=== PATIENT | male | born 1995 | race Asian ===

== ENCOUNTER 2021-06-12 08:10 | Outpatient (CLI) | payer OTHER ==
[2021-06-12 09:13] VITALS: BP 122/83
--- NOTE | 2021-06-12 09:13 | SLEEP CARE CONSULTATION ---
Information from patient questionnaire entered by Paola Sylvester. I have reviewed and concur with the information entered by Paola Sylvester. This document represents the service I personally performed and the decisions made by me, Quyen Diaz ARNP. History of Present Illness Service Date and Time: 06/12/2021 0810 Reason for Visit: New patient Chief Complaint: reports: Insomnia, Unrefreshed sleep, Snoring, Excessive daytime sleepiness, Observed pauses in breathing, Frequent awakenings at night Date of Onset: at least 3 years Usual bedtime: 2-3 am Time it takes to fall asleep: long time Snores at night: Yes Observed to quit breathing while asleep: Yes Sleeps alone due to snoring: No Number of times waking at night: 4-5 Reasons for waking at night: reports: Snoring, Gasping for air, Bathroom, Other (unknown reasons). denies: Choking Toss, Turn, or Twitch while sleeping: Yes Recalls having dreams: No Usually gets out of bed at: 9 am Feels refreshed in the morning: No Morning headache: Yes (resolves after drinking water; every morning) Sleepy or fatigued during the day: Yes Ever fallen asleep while driving: No Takes day naps: No Dreams during day naps: Yes Prior sleep studies: No Additional HPI information: I had the pleasure of seeing SANTIAGO ISRAEL today regarding the possibility of him having a sleep disorder. His current complaints are excessive daytime slee piness, frequent night awakenings, insomnia, observed pauses in breathing, snoring and unrefreshed sleep. He comes in today because others sleeping in same room have told him he gasps for air and snores really loudly. He states the snoring has been there for a long time, even when he was "skinnier". He states he is always tired, wakes up with headaches and dry mouth from sleeping with mouth open. He has taken Ambien in the past to help and had some good results. He has also taken Melatonin to go sleep. He averages 1 hour to go to sleep. He states that he can wake up easily, 3-4 times a night after falling asleep. He has woken up gasping for air and snoring. He has a history of hypertension and pre-diabetes. 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 Patient is Single and lives in [place]. Have you smoked in the past 12 months: Yes (occasional/social) Cigarettes per day (20/pack): 1 (occasional) Years of smokin Smoking Pack Years: 0 Alcohol use: Yes Alcohol amount and frequency: occasional 6 times a year/social Caffeine use: Yes Caffeine amount and frequency: barely Family History Family history of sleep disordered breathing: Yes (none diagnosed) Family Hx Sleep Apnea: Mother: Snoring, Sleep apnea - Untreated, Father: Snoring, Sibling: Snoring, Sleep apnea - Untreated, Grandparent: Snoring Allergies and Home Medications Drug allergies reviewed: Yes (NKDA) Home medication list reviewed: Yes Allergy and home medication list: Lisinopril Ambien, prn Melatonin, prn B-complex vitamin Fish oil Review of Systems Weight gain over past 5 years: 35 Cardiovascular: reports: high blood pressure, palpitations Neurological: reports: headaches Psychiatric: reports: anxiety. denies: depression Ear/Nose/Throat: reports: dry mouth/throat (every morning), wisdom teeth removed (one removed, still has one more). denies: sinus problems, injury to nose, tonsillectomy Immunologic: denies: allergies to food or environment Physical Exam Blood Pressure: 122/83 Cuff size: wrist Heart Rate: 71 O2 Saturation: 99 Height: 5 ft 6 in Weight: 186 lb Body Mass Index: 29.9 BMI Classification: Overweight Neck circumference: 16.25 (inches) Mouth and throat: narrow oropharynx Soft palate: long Hard palate: normal Uvula: normal Uvula visualization: 25% Mallampati Class III Tongue: enlarged in size with teeth colvin on lateral edges Neck: normal w/o lymphadenopathy or thyromegaly Heart: regular rate and rhythm Lungs: clear bilaterally Impression and Plan 1. Suspected Obstructive Sleep Apnea-Hypopnea Syndrome, as suggested by a history of loud and irregular snoring, observed cessation of breath while asleep, gasping or choking in sleep, morning headache, frequent awakening during the night, unrefreshed sleep, cognitive impairment, and excessive daytime sleepiness. Narrow oropharynx and obesity are common predisposing factors for obstructive sleep apnea-hypopnea syndrome. I recommend proceeding to polysomnography to confirm the diagnosis and to assess severity. If the patient has significant sleep disordered breathing, a manual CPAP titration study will also be performed to find the optimal treatment pressure. I informed the patient of what the sleep studies involve and after some discussion, obtained agreement to proceed. The pathophysiology of obstructive sleep apnea-hypopnea syndrome was discussed with the patient and health risks of cardiovascular and cerebrovascula r disease if not treated. AAS brochure for obstructive sleep apnea-hypopnea syndrome given and reviewed. Risks of drowsy driving discussed in detail and patient advised to avoid long distance driving and to pull through hooker at the first sign of drowsiness. Patient agreed to plan. * Schedule polysomnography +- manual CPAP titration study and return in 1-2 weeks after the study to discuss result and initiate therapy. * Avoid long distance driving or driving when feeling sleepy. * Avoid alcohol, sedative and muscle relaxant around bedtime. * Attempt to lose weight. * Review instructions provided by trained office staff on how to prepare for the sleep study. * Return for follow-up after sleep study completed. Counseling Topics: Weight loss health impact Visit Type: In Office Time Spent with Patient (minutes): 30 Provider Statement: I spent 100% of the Face to Face Visit with the patient with greater than 50% spent counseling the patient and coordination of care.
== END 2021-06-12 08:11 | disposition home or self-care (01) ==
LOC: SC 08:10
PROVIDERS: ATTEND Nurse Practitioner Family
DX: G47.10 Hypersomnia, unspecified (principal); R51.9 Headache, unspecified; G47.8 Other sleep disorders; R06.83 Snoring; R41.89 Other symptoms and signs involving cognitive functions and awareness; R06.81 Apnea, not elsewhere classified; F17.210 Nicotine dependence, cigarettes, uncomplicated
CPT/HCPCS: 99203; 99212

== ENCOUNTER 2021-06-20 13:51 | Outpatient (CLI) | payer OTHER | END 2021-06-20 13:52 | disposition home or self-care (01) | LOC: SC 13:51 | PROVIDERS: ATTEND Nurse Practitioner Family | DX: G47.33 Obstructive sleep apnea (adult) (pediatric) (principal); R09.02 Hypoxemia | CPT/HCPCS: 95806 ==

== ENCOUNTER 2021-07-03 11:26 | Outpatient (CLI) | payer OTHER ==
[2021-07-03 12:06] VITALS: BP 143/86
--- NOTE | 2021-07-03 12:06 | SLEEP CARE CONSULTATION ---
Information from patient questionnaire entered by Bridget Pablo. I have reviewed and concur with the information entered by Bridget Pablo. This document represents the service I personally performed and the decisions made by me, Quyen Diaz ARNP. History of Present Illness Service Date and Time: 07/03/2021 1126 Initial [place] Sleepiness Scale score: 11 (in 2020) Current [place] Sleepiness Scale score: 21 Additional HPI information: SANTIAGO ISRAEL returns for follow up and results of the recently performed polysomnography. I explained the pathophysiology behind obstructive sleep apnea. We then spent quite a bit of time discussing different treatment options. For mild obstructive sleep apnea, surgery and oral appliance are alternatives to nasal CPAP therapy but in moderate or severe cases, nasal CPAP is the most effective and reliable treatment. Because apnea is primarily in supine position, then positional management therapy could be effective. Methods discussed such as positioning with pillows, using a T-shirt with tennis balls in the back, and shown commercial products that have a pillow format on back to prevent supine sleep. I reviewed the impact of weight changes on sleep apnea and strongly recommended losing weight. After some discussion, the patient opted to go with the nasal CPAP therapy. Nasal autoCPAP set at 4-15 cmH20 will be ordered with rationale explained. A manual titration study will be ordered if unable to find optimal pressure with office adjustments. I explained how CPAP machine works with sample devices [employer] Dreamstation and [employer] [id number] and what to expect when using the machine. Using CPAP every night in order to get used to it was emphasized. Patient advised to put CPAP mask on before getting into bed so as not to fall asleep without CPAP. To assist acclimation to CPAP use, it could also be used for a short time during day while reading or watching TV. The patient was instructed to call the CPAP supplier to discuss any mechanical problem that may occur. If the mask given is uncomfortable or is difficult to keep on through the night even with adjustment, contact the CPAP supplier as many will replace with another mask style if notified before 30 days. If snoring or perceives is not getting enough air or too much air from the machine, notify this office. [facility] patient education PAP tips reviewed and given to patient. Patient counseled not drink alcohol less than 4 hours before bedtime as it can increase snoring and apnea. Patient was cautioned about risks of drowsy driving until sleepiness symptoms resolve. Sleep Study - Results Type of Sleep Study: Home sleep study Prior sleep studies: Yes Year and Where: 06/2021 [facility] Polysomnography/Home Sleep Study results: Physician Impression: The quality of the study is good. The length of the study is adequate (> 240 minutes). Please also see the tabulated and graphic data. 1. Obstructive Sleep Apnea-Hypopnea (ICD-10 G47.33), moderate, with an AHI of 15.2/hr and kassandra SaO2 of 79%. During the study, the patient had 42 apneas (42 obstructive, 0 central, 0 mixed) and 16 hypopneas. The longest episode lasted 65.5 seconds. The respiratory events occurred independently of sleep stage and body position (supine AHI was 14.3 and non-supine, 17.68). 2. Hypoxemia (ICD-10 R09.02), moderate, with the lowest oxygen saturation of 79 % and 7.4 minutes with SaO2 under 90%. Baseline oxygen saturation was normal (Average oxygen saturation was 95%). Allergies and Home Medications Home medication list reviewed: Yes (increased Lisinopril to 10 mg; Ambien 5 mg prn) Review of Systems Review of systems same as previous: Yes (no changes) Physical Exam Blood Pressure: 143/86 Cuff size: wrist Heart Rate: 89 O2 Saturation: 98 Height: 5 ft 6 in Weight: 187 lb Body Mass Index: 30.2 BMI Classification: Obese Impression and Plan 1. Obstructive Sleep Apnea-Hypopnea Syndrome, moderate, with lowest oxygen saturation of 79%. Obviously this is the cause of the patients symptoms of unrefreshed sleep, and excessive daytime sleepiness. Positive pressure therapy could benefit hypertension and pre-diabetes. As mentioned above, the patient will be started on nasal autoCPAP therapy with pressure set at 4-15 cmH2O. A manual titration study will be completed if unable to find optimal treatment pressure with office adjustments. Compliance guidelines also reviewed. A copy of compliance guidelines will be given for reference at check out. 2. Hypoxemia, moderate, with the lowest oxygen saturation of 79 % and 7.4 minutes with SaO2 under 90%. His baseline oxygen saturation was normal with an average oxygen saturation of 95%. * Nasal auto CPAP therapy, pressure at 4-15 cm H2O. * Attempt to lose weight. * Avoid alcohol consumption near bedtime. * Avoid supine sleep until using CPAP. * The patient is again cautioned about driving until sleepiness completely resolves. * Return one month after CPAP obtained. I will assess response to therapy and compliance at that time. Counseling Topics: Weight loss health impact Visit Type: In Office Time Spent with Patient (minutes): 27 Provider Statement: I spent 100% of the Face to Face Visit with the patient with greater than 50% spent counseling the patient and coordination of care.
== END 2021-07-03 11:27 | disposition home or self-care (01) ==
LOC: SC 11:26
PROVIDERS: ATTEND Nurse Practitioner Family
DX: G47.33 Obstructive sleep apnea (adult) (pediatric) (principal); R09.02 Hypoxemia; E66.9 Obesity, unspecified; Z68.30 Body mass index [BMI] 30.0-30.9, adult
CPT/HCPCS: 99212; 99213

== ENCOUNTER 2021-09-29 08:42 | Emergency (ER) | payer OTHER ==
[2021-09-29] MEDS ORDERED: SODIUM CHLORIDE 0.9% 1,000 ML IV STA (08:55)
[2021-09-29] MEDS ORDERED: KETOROLAC 30 MG/ML VIAL IVP STA (08:55)
[2021-09-29] MEDS ORDERED: ONDANSETRON 4 MG/2 ML VIAL IVP STA (08:55)
--- NOTE | 2021-09-29 08:57 | ED Physician Documentation ---
PD HPI ABD PAIN - Stated complaint Stated Complaint: DIZZY/VOMITING - Chief complaint Chief Complaint: Abd Pain - History obtained from History obtained from: Patient - Additional information Additional information: 26-year-old gentleman with hypertension and sleep apnea presents with an illness that started 2 days ago with vomiting, diarrhea, and dizziness as well as stomach cramps. His sister was recently ill with similar illness. He is fully vaccinated against Covid. He feels dizzy, more lightheaded than spinning but endorses both sensations. Denies headache. No blood in the diarrhea. No fevers. He does have a dry cough. Recently traveled to [place]. He has had subjective fevers but none measured. Review of Systems Constitutional: reports: Fatigue. denies: Myalgias Nose: denies: Rhinorrhea / runny nose, Congestion Cardiac: denies: Chest pain / pressure, Palpitations Respiratory: reports: Cough. denies: Dyspnea GI: reports: Abdominal Pain, Nausea, Vomiting, Diarrhea PD PAST MEDICAL HISTORY - Present Medications Home Medications: Ambulatory Orders Medication Instructions Recorded Confirmed Dicyclomine [Bentyl] 1 - 2 tab PO QID PRN #20 cap 09/29/21 Ondansetron Odt [Zofran] 4 mg TL Q6H PRN #10 tablet 09/29/21 - Allergies Allergies/Adverse Reactions: Allergies Allergy/AdvReac Type Severity Reaction Status Date / Time No Known Drug Allergies Allergy Verified 09/29/21 08:50 PD ED PE NORMAL - Vitals Vital signs reviewed: Yes - General General: Alert and oriented X 3, No acute distress - HEENT HEENT: Pharynx benign - Neck Neck: Supple, no meningeal sign, No bony TTP - Cardiac Cardiac: RRR, No murmur - Respiratory Respiratory: No respiratory distress, Clear bilaterally - Abdomen Abdomen: Normal bowel sounds, Soft, Non tender - Back Back: No CVA TTP, No spinal TTP - Derm Derm: Normal color, Warm and dry - Extremities Extremities: No edema, No calf tenderness / cord - Neuro Neuro: Alert and oriented X 3, Normal speech Results - Vitals Vitals: Vital Signs - 24 hr 09/29/21 09/29/21 08:48 08:50 Temperature 36.9 C 36.9 C Heart Rate 66 66 Respiratory 18 18 Rate Blood Pressure 161/95 H 161/95 H O2 Saturation 98 98 Oxygen O2 Source Room air - Labs Labs: Laboratory Tests 09/29/21 09/29/21 09:30 09:30 WBC 4.9 RBC 4.99 Hgb 15.5 Hct 43.7 MCV 87.6 MCH 31.1 H MCHC 35.5 RDW 12.0 Plt Count 197 MPV 9.9 Neut # (Auto) 2.6 Lymph # (Auto) 1.8 Logan # (Auto) 0.4 Eos # (Auto) 0.1 Baso # (Auto) 0.1 Absolute Nucleated RBC 0.00 Nucleated RBC % 0.0 Sodium 139 Potassium 4.1 Chloride 104 Carbon Dioxide 24 Anion Gap 11.0 BUN 13 Creatinine 0.9 Estimated GFR (MDRD) 102 Glucose 101 H Calcium 9.3 Total Bilirubin 1.4 H AST 25 ALT 39 Alkaline Phosphatase 48 Total Protein 7.8 Albumin 4.6 Globulin 3.2 Albumin/Globulin Ratio 1.4 Lipase 30 PD MEDICAL DECISION MAKING - ED course ED course: 26-year-old gentleman with what sounds like viral gastroenteritis. He has a benign examination. He requested Covid testing and this is done. Departure - Departure Disposition: 01 Home, Self Care Clinical Impression: Gastroenteritis Condition: Good Record reviewed to determine appropriate education?: Yes Instructions: ED Gastroenteritis Viral Prescriptions: Dicyclomine [Bentyl] 1 - 2 tab PO QID PRN #20 cap PRN Reason: Abdominal Pain Ondansetron Odt [Zofran] 4 mg TL Q6H PRN #10 tablet PRN Reason: Nausea / Vomiting Comments: Return if not better in 24 hours, anytime for new or worsening symptoms. You have a Covid test pending. You need to self quarantine until the result is done and negative. Do not leave your house. Do not get near anybody. The results should be done in 48 to 72 hours. We will call with a positive result, the fastest way to get a negative result for confirmation though is to go to the hospital website at [email or web address], click on the my [facility] tab and sign up for the patient portal. If any friends or family get sick and would like to have a Covid test done, but do not have signs or symptoms that would necessitate being hospitalized, there are multiple local options for Covid testing. [facility] keeps an updated list of testing and vaccination options at: [email or web address]. Forms: Activity restrictions
[2021-09-29 09:36] LABS: BASOPHILS # (AUTO) 0.1 10^3/uL (0.0-0.1); EOSINOPHILS # (AUTO) 0.1 10^3/uL (0.0-0.7); HCT - HEMATOCRIT 43.7 % (42.0-52.0); HGB - HEMOGLOBIN 15.5 g/dL (14.0-18.0); LYMPHOCYTES # (AUTO) 1.8 10^3/uL (1.5-3.5); LYMPHOCYTES % (AUTO) 36.3 %; MEAN CORPUSCULAR HEMOGLOBIN 31.1 pg (27.0-31.0); MEAN CORPUSCULAR HGB CONC 35.5 g/dL (32.0-36.0); MEAN CORPUSCULAR VOLUME 87.6 fL (80.0-94.0); MEAN PLATELET VOLUME 9.9 fL (7.4-11.4); MONOCYTES # (AUTO) 0.4 10^3/uL (0.0-1.0); MONOCYTES % (AUTO) 7.3 %; NEUTROPHILS # (AUTO) 2.6 10^3/uL (1.5-6.6); NEUTROPHILS % (AUTO) 53.2 %; PLT - PLATELET COUNT 197 10^3/uL (130-450); RED BLOOD COUNT 4.99 10^6/uL (4.70-6.10); WHITE BLOOD COUNT 4.9 x10^3/uL (4.8-10.8)
[2021-09-29 09:50] LABS: ALBUMIN 4.6 g/dL (3.2-5.5); ALBUMIN/GLOBULIN RATIO 1.4 (1.0-2.2); BILIRUBIN,TOTAL 1.4 mg/dL (0.2-1.0); CALCIUM 9.3 mg/dL (8.5-10.3); CREATININE 0.9 mg/dL (0.6-1.2); POTASSIUM 4.1 mmol/L (3.5-5.0); TOTAL PROTEIN 7.8 g/dL (6.7-8.2)
[2021-09-29 10:28] VITALS: BP 130/90
== END 2021-09-29 10:27 | disposition home or self-care (01) ==
LOC: ED 08:42
DX: K52.9 Noninfective gastroenteritis and colitis, unspecified (principal); R42 Dizziness and giddiness; Z20.822 Contact with and (suspected) exposure to COVID-19; I10 Essential (primary) hypertension; G47.30 Sleep apnea, unspecified
CPT/HCPCS: 36415; 80053; 83690; 85025; 96374; 96375; 99284

== ENCOUNTER 2022-04-11 16:29 | Outpatient (CLI) | payer OTHER ==
--- NOTE | 2022-04-11 16:01 | SLEEP CARE CONSULTATION ---
Information from patient questionnaire entered by Frankie Navarro MA. I have reviewed and concur with the information entered by Frankie Navarro MA. This document represents the service I personally performed and the decisions made by , Quyen Diaz ARNP. History of Present Illness Service Date and Time: 04/11/2022 1540 Previous diagnosis: Moderate, Obstructive Sleep Apnea-Hypopnea Syndrome AHI: 15.2 (in 2020) Reason for follow up: first compliance (TIFFANIE FIGUEROA 09/12/21, ) Equipment type: CPAP Equipment obtained from: [employer] (got initial supplies) Mask style: Nasal pillows Backup mask available: No (will keep old mask when replaced) Last cushion change: 1 month Prior sleep studies: Yes Year and Where: 06/2021 [facility] Type of Sleep Study: Home sleep study HPI additional information: SANTIAGO ISRAEL was diagnosed to have moderate, AHI 15.2, obstructive sleep apnea- hypopnea syndrome and returns via video telehealth visit today for CPAP therapy first compliance follow-up. Sleep Study - Results Type of Sleep Study: Home sleep study Prior sleep studies: Yes Year and Where: 06/2021 [facility] CPAP Compliance Data - Data Reviewed with Patient Average duration of nightly device use: 4 HOURS 14 MINUTES Compliance rate %: 53 (03/06/22-04/04/22; 30 days; days used) Current pressure setting (cmH2O): 4-15 (median 9.5, avg 12.3, max 13.5) Average residual AHI: 2.5 Central apnea: .3 Obstructive apnea: 1.7 Hypopnea: .4 Average large leak: 11.0 Subjective Missed days of use due to: reports: travel (for work) Patient concerns: reports: other. denies: aerophagia, mask discomfort, air blowing in eyes, mask leak noise, condensation in mask/hose, nasal congestion, dry mouth, nose, throat, epistaxis Observed to snore while using device: No Current pressure setting perceived as: comfortable On therapy, patient: reports: sleeping better, awakening more refreshed, being more awake and alert during the day, more rested overall. denies: drowsiness while driving Initial [place] Sleepiness Scale score: 11 (in 2021) Current [place] Sleepiness Scale score: 9 Allergies and Home Medications Home medication list reviewed: Yes (fluoxetine) Allergy and home medication list: Allergies No Known Drug Allergies Allergy (Verified 09/29/21 08:50) Review of Systems Review of systems same as previous: No (eating disorder) Physical Exam Height: 5 ft 7 in Weight: 190 lb (per pt report) Body Mass Index: 29.7 BMI Classification: Overweight Impression and Plan 1. Obstructive Sleep Apnea-Hypopnea Syndrome, moderate, with fair treatment compliance and good apnea control. On CPAP therapy, the patient has better sleep quality and is more rested overall. The patients pressure will be changed to autoCPAP 11-14 cmH20 to reflect the pressures being used. Patient advised to contact me if pressure change is uncomfortable so that it can be adjusted. Goals for apnea control discussed. Compliance guidelines reviewed for insurance coverage. Patient was counseled on the difference between meeting compliance and optimal use of CPAP. Optimal use of CPAP is use of CPAP with all sleep to obtain maximum benefit of treatment. Patient is encouraged to use CPAP with all sleep. Patient denies problems with oral dryness, nasal congestion, epistaxis, skin irritation or aerophagia. Patient's apnea severity and rationale for treatment to reduce apnea, improve sleep quality and reduce cardiovascular and cerebrovascular events was reviewed. I also reviewed the benefit of consistent device use of CPAP for hypertension and pre-diabetes. * Change auto CPAP pressure to 11-14 cmH2O * Notify me if snoring with mask or feeling that the pressure is too much or too little * Attempt to lose weight * Call this office if any problems using CPAP * Return for follow up in 1-2 months, or sooner if concerns arise Counseling Topics: Spare mask, Weight loss health impact Visit Type: Telehealth Video Video Type: Doximity Patient Location: Home Location of Provider: Office Patient agrees and consents to this telehealth visit type: Yes Patient agrees to have their insurance billed: Yes Time Spent with Patient (minutes): 21 Provider Statement: I spent 100% of the Telehealth Video Call with the patient with greater than 50% spent counseling the patient and coordination of care.
== END 2022-04-11 16:30 | disposition home or self-care (01) ==
LOC: SC 16:29
PROVIDERS: ATTEND Nurse Practitioner Family
DX: G47.33 Obstructive sleep apnea (adult) (pediatric) (principal); E66.3 Overweight; Z68.29 Body mass index [BMI] 29.0-29.9, adult

== ENCOUNTER 2022-06-13 16:23 | Outpatient (CLI) | payer OTHER ==
--- NOTE | 2022-06-13 16:03 | SLEEP CARE CONSULTATION ---
Information from patient questionnaire entered by Tay Arango. I have reviewed and concur with the information entered by Tay Arango. This document represents the service I personally performed and the decisions made by , Quyen Diaz ARNP. History of Present Illness Service Date and Time: 06/13/2022 1540 Previous diagnosis: Moderate, Obstructive Sleep Apnea-Hypopnea Syndrome AHI: 15.2 (in 2020) Reason for follow up: other (2 MONTH F/U ) Equipment type: CPAP Equipment obtained from: [employer] (waiting on supplies) Mask style: Nasal pillows Backup mask available: No (will keep old mask when replaced) Prior sleep studies: Yes Year and Where: 06/2021 [facility] Type of Sleep Study: Home sleep study HPI additional information: [place] was diagnosed to have moderate, AHI 15.2, obstructive sleep apnea- hypopnea syndrome and returned today for CPAP therapy two month follow-up. Sleep Study - Results Type of Sleep Study: Home sleep study Prior sleep studies: Yes Year and Where: 06/2021 [facility] CPAP Compliance Data - Data Reviewed with Patient Average duration of nightly device use: 3 HOURS, 35 MINUTES Compliance rate %: 30 (04/13/22 TO 06/11/22; 56/60 days used) Current pressure setting (cmH2O): 11-14 Average residual AHI: 3.9 Average large leak: 10.9 L/min Subjective Patient concerns: reports: dry mouth, nose, throat. denies: aerophagia, mask discomfort, air blowing in eyes, mask leak noise, condensation in mask/hose, nasal congestion, epistaxis, other Observed to snore while using device: No Current pressure setting perceived as: comfortable On therapy, patient: reports: sleeping better, awakening more refreshed, being more awake and alert during the day, more rested overall. denies: drowsiness while driving Initial [place] Sleepiness Scale score: 11 (in 2020) Current [place] Sleepiness Scale score: 14 (06/13/22) Allergies and Home Medications Known drug allergies: No Drug allergies reviewed: Yes Home medication list reviewed: Yes (no changes) Review of Systems Review of systems same as previous: Yes (no changes) Physical Exam Vital signs obtained and entered by: MELCHOR, TOOLS ADMINISTRATOR Height: 5 ft 7 in Weight: 190 lb (pt reported) Body Mass Index: 29.7 BMI Classification: Overweight Impression and Plan 1. Obstructive Sleep Apnea-Hypopnea Syndrome, moderate, with poor treatment compliance and good apnea control. On CPAP therapy, the patient has better sleep quality and is more rested overall. [] Patient's apnea severity and rationale for treatment to reduce apnea, improve sleep quality and reduce cardiovascular and cerebrovascular events was reviewed. I also reviewed the benefit of consistent device use of CPAP for hypertension and pre-diabetes. * Continue auto CPAP pressure at 11-14 cmH2O * Notify me if snoring with mask or feeling that the pressure is too much or too little * Attempt to lose weight * Call this office if any problems using CPAP * Return for follow up in 3 months, or sooner if concerns arise Counseling Topics: Spare mask, Weight loss health impact Visit Type: Telehealth Video (PHONE# [phone].) Video Type: Doximity Patient Location: Office (ED [facility]) Location of Provider: Office Patient agrees and consents to this telehealth visit type: Yes Patient agrees to have their insurance billed: Yes Time Spent with Patient (minutes): 20 Provider Statement: I spent 100% of the Telehealth Video Call with the patient with greater than 50% spent counseling the patient and coordination of care.
== END 2022-06-13 16:24 | disposition home or self-care (01) ==
LOC: SC 16:23
PROVIDERS: ATTEND Nurse Practitioner Family
DX: G47.33 Obstructive sleep apnea (adult) (pediatric) (principal); E66.3 Overweight; Z68.29 Body mass index [BMI] 29.0-29.9, adult

== ENCOUNTER 2022-10-14 12:46 | Outpatient (CLI) | payer OTHER ==
[2022-10-14 13:28] VITALS: BP 132/84
--- NOTE | 2022-10-14 13:28 | SLEEP CARE CONSULTATION ---
Information from patient questionnaire entered by Lei Jeffers. I have reviewed and concur with the information entered by Lei Jeffers. This document represents the service I personally performed and the decisions made by me, Quyen Diaz ARNP. History of Present Illness Service Date and Time: 10/14/2022 1246 Previous diagnosis: Moderate, Obstructive Sleep Apnea-Hypopnea Syndrome AHI: 15.2 (in 2020) Reason for follow up: other (FOUR MONTH F/U SYMPTOMS WORSENING ) Equipment type: CPAP (RESMED) Equipment obtained from: [employer] (getting supplies) Mask style: Nasal pillows Backup mask available: Yes (old mask) Last cushion change: last week Prior sleep studies: Yes Year and Where: 06/2021 [facility] Type of Sleep Study: Home sleep study HPI additional information: [place] was diagnosed to have moderate, AHI 15.2, obstructive sleep apnea- hypopnea syndrome and returned today for CPAP therapy four month follow-up. Sleep Study - Results Type of Sleep Study: Home sleep study Prior sleep studies: Yes Year and Where: 06/2021 [facility] CPAP Compliance Data - Data Reviewed with Patient Average duration of nightly device use: 4 hours 24 minutes Compliance rate %: 56 (68/90 days used) Current pressure setting (cmH2O): 11-14 (avg 13.7, max 13.8) Average residual AHI: 3.7 Central apnea: 0.4 Obstructive apnea: 2.5 Subjective Missed days of use due to: reports: travel (deployment), other (insomnia affecting ability to go and stay asleep) Patient concerns: denies: aerophagia, mask discomfort, air blowing in eyes, mask leak noise, condensation in mask/hose, nasal congestion, dry mouth, nose, throat, epistaxis Observed to snore while using device: No Current pressure setting perceived as: comfortable On therapy, patient: reports: other (not feeling rested after sleeping and having insomnia) Initial [place] Sleepiness Scale score: 11 (in 2020) Current [place] Sleepiness Scale score: 22 (10/14/22) Allergies and Home Medications Drug allergies reviewed: Yes (NKDA) Home medication list reviewed: Yes (Lisinopril, HCTZ) Review of Systems Review of systems same as previous: Yes (no changes) Physical Exam Vital signs obtained and entered by: LEI Monique MA Blood Pressure: 132/84 (LEFT ARM) Cuff size: regular Heart Rate: 87 O2 Saturation: 94 Height: 5 ft 7 in Weight: 201 lb Body Mass Index: 31.4 BMI Classification: Obese Impression and Plan 1. Obstructive Sleep Apnea-Hypopnea Syndrome, moderate, with fair treatment compliance and good apnea control. Patient is not regularly getting 7-9 hours of sleep a night. He feels the CPAP therapy is not working. He will often not fall asleep for hours with his mask on. He is still very tired during the day and concerned about insomnia. He does put mask on frequently at night but will only be able to sleep for more than 4 hours. He states he will take naps without the CPAP on. Patient denies problems with oral dryness, nasal congestion, epistaxis, skin irritation or aerophagia. He Patient's apnea severity and rationale for treatment to reduce apnea, improve sleep quality and reduce cardiovascular and cerebrovascular events was reviewed. I also reviewed the benefit of consistent device use of CPAP for hypertension and pre-diabetes. 2. Obesity, unspecified. Currently patients BMI is 31.4. Obesity increases the risk of apnea, CPAP pressure requirements and overall health risks especially cardiovascular and diabetes. Thus patient is advised to continue to try to lose weight. 3. Insomnia, unspecified. Patient has complaints of still being very tired during the day and not sleeping well at night even when he is using his CPAP. He states it takes hours for him to fall asleep and then he can only sleep for about 3-4 hours a night. He has tried using Melatonin but states he had vivid dreams and would yell out at night waking up himself and his . He has since stopped using it. He is hoping to be able to get more sleep at night. Insomnia is generally caused by an irregular sleep schedule, spending too much time in bed, napping, caffeine, electronics, lack of a relaxing bedtime ritual and clock watching. Other factors can include anxiety/depression, pain, medications, and obstructive sleep apnea. An [facility] How to Sleep Better pamphlet given and reviewed. A sleep diary will be completed for the next 2 weeks to assist implementation of recommendations and for further evaluation of sleep concerns. * Continue auto CPAP pressure at 11-14 cmH2O * Notify me if snoring with mask or feeling that the pressure is too much or too little * Attempt to lose weight * Call this office if any problems using CPAP * Fill out 2 week sleep diary and bring in with him to next appointment * Return for follow up in 2-4 weeks for insomnia with Dr. Palmer, or sooner if concerns arise Counseling Topics: Spare mask, Weight loss health impact Visit Type: In Office Time Spent with Patient (minutes): 22 Provider Statement: I spent 100% of the Face to Face Visit with the patient with greater than 50% spent counseling the patient and coordination of care.
== END 2022-10-14 12:47 | disposition home or self-care (01) ==
LOC: SC 12:46
PROVIDERS: ATTEND Nurse Practitioner Family
DX: G47.33 Obstructive sleep apnea (adult) (pediatric) (principal); E66.9 Obesity, unspecified; Z68.31 Body mass index [BMI] 31.0-31.9, adult; G47.00 Insomnia, unspecified
CPT/HCPCS: 99212; 99213

== ENCOUNTER 2023-04-26 00:31 | Emergency (ER) | payer OTHER ==
[2023-04-26 01:13] LABS: BASOPHILS # (AUTO) 0.1 10^3/uL (0.0-0.1); BASOPHILS % (AUTO) 0.4 %; EOSINOPHILS # (AUTO) 0.1 10^3/uL (0.0-0.7); EOSINOPHILS % (AUTO) 0.5 %; HCT - HEMATOCRIT 44.4 % (42.0-52.0); HGB - HEMOGLOBIN 15.3 g/dL (14.0-18.0); LYMPHOCYTES # (AUTO) 1.3 10^3/uL (1.5-3.5); LYMPHOCYTES % (AUTO) 10.7 %; MEAN CORPUSCULAR HEMOGLOBIN 29.9 pg (27.0-31.0); MEAN CORPUSCULAR HGB CONC 34.5 g/dL (32.0-36.0); MEAN CORPUSCULAR VOLUME 86.9 fL (80.0-94.0); MEAN PLATELET VOLUME 10.4 fL (7.4-11.4); MONOCYTES # (AUTO) 1.2 10^3/uL (0.0-1.0); MONOCYTES % (AUTO) 9.7 %; NEUTROPHILS # (AUTO) 9.4 10^3/uL (1.5-6.6); NEUTROPHILS % (AUTO) 78.2 %; PLT - PLATELET COUNT 209 10^3/uL (130-450); RED BLOOD COUNT 5.11 10^6/uL (4.70-6.10); RED CELL DISTRIBUTION WIDTH 12.3 % (12.0-15.0); WHITE BLOOD COUNT 12.1 x10^3/uL (4.8-10.8)
[2023-04-26 01:17] VITALS: BP 158/93
[2023-04-26 01:21] LABS: ALBUMIN 4.7 g/dL (3.2-5.5); ALBUMIN/GLOBULIN RATIO 1.2 (1.0-2.2); CREATININE 1.1 mg/dL (0.6-1.2); POTASSIUM 3.9 mmol/L (3.5-5.0); TOTAL PROTEIN 8.7 g/dL (6.7-8.2)
--- NOTE | 2023-04-26 01:23 | ED Physician Documentation ---
PD HPI NVD - Stated complaint Stated Complaint: N/V/STOMACH PX - Chief complaint Chief Complaint: Abd Pain - History obtained from History obtained from: Patient - Additonal information Additional information: HPI from patient. Patient c/o abdominal pain x 2-3 days, gradual onset, waxing and waning without exacerbating or ameliorating factors. The pain is across upper abdomen and does not radiate. He denies h/o similar symptoms. He has had nausea and vomiting. Denies fever. No relevant past surgical history. Review of Systems Constitutional: denies: Fever PD PAST MEDICAL HISTORY - Past Medical History Past Medical History: Yes Cardiovascular: Hypertension Endocrine/Autoimmune: Other Psych: Depression, Anxiety Other Past Medical History: Prediabetes - Past Surgical History Past Surgical History: No - Present Medications Home Medications: Ambulatory Orders Medication Instructions Recorded Confirmed Lisinopril [Zestril] See Rx Instructions .ROUTE .COMPLEX 10/14/22 04/26/23 hydroCHLOROthiazide [Hydrodiuril] See Rx Instructions .ROUTE .COMPLEX 10/14/22 04/26/23 Fluoxetine HCl [Prozac] 80 mg PO DAILY 04/26/23 04/26/23 Lidocaine Viscous 2% [Xylocaine 5 - 10 ml PO Q4H PRN #100 ml 04/26/23 Viscous 2%] Ondansetron Odt [Zofran Odt] 4 mg TL Q6H PRN #14 tablet 04/26/23 Sucralfate [Carafate] 1 gm PO ACHS #60 tablet 04/26/23 buPROPion HCL [Bupropion Xl] 150 mg PO DAILY 04/26/23 04/26/23 metFORMIN [Glucophage] 500 mg PO BID 04/26/23 04/26/23 traMADol [Ultram] 50 - 100 mg PO Q6H PRN #14 tablet 04/26/23 - Allergies Allergies/Adverse Reactions: Allergies Allergy/AdvReac Type Severity Reaction Status Date / Time No Known Drug Allergies Allergy Verified 04/26/23 00:40 - Social History Does the pt smoke?: No Smoking Status: Never smoker Does the pt drink ETOH?: No Does the pt have substance abuse?: No - Immunizations Immunizations are current?: Yes - POLST Patient has POLST: No PD ED PE NORMAL - Vitals Vital signs reviewed: Yes - General General: Alert and oriented X 3, No acute distress, Well developed/nourished - HEENT HEENT: Moist mucous membranes - Cardiac Cardiac: RRR, No murmur - Respiratory Respiratory: No respiratory distress, Clear bilaterally - Abdomen Abdomen: Soft, Non distended, Other (mild TTP epigastrium with lesser TTP RUQ and LUQ. Remainder of abdominal exam is nontender) - Derm Derm: Normal color, Warm and dry Results - Vitals Vitals: Oxygen O2 Source Room air - EKG (time done) No standard instances EKG releavant findings:: EKG personally interpreted by author of this note. Relevant findings are: Rate: Rate (enter#) (94) Rhythm: NSR Ellinger: LAD Intervals: Normal MA QRS: Normal Ischemia: ST elevation c/w repol (V2, questionable V3), T wave inversion (III, aVF) - Labs Labs: Laboratory Tests 04/26/23 04/26/23 04/26/23 01:02 01:02 01:02 WBC 12.1 H RBC 5.11 Hgb 15.3 Hct 44.4 MCV 86.9 MCH 29.9 MCHC 34.5 RDW 12.3 Plt Count 209 MPV 10.4 Neut # (Auto) 9.4 H Lymph # (Auto) 1.3 L [place] # (Auto) 1.2 H Eos # (Auto) 0.1 Baso # (Auto) 0.1 Absolute Nucleated RBC 0.00 Nucleated RBC % 0.0 Sodium 134 L Potassium 3.9 Chloride 96 L Carbon Dioxide 28 Anion Gap 10.0 BUN 15 Creatinine 1.1 Estimated GFR (MDRD) 80 L Glucose 132 H Calcium 10.0 Total Bilirubin 1.0 AST 30 ALT 71 H Alkaline Phosphatase 40 L Troponin I High Sens < 2.3 L Total Protein 8.7 H Albumin 4.7 Globulin 4.0 Albumin/Globulin Ratio 1.2 Lipase 28 Urine Color Urine Clarity Urine pH Ur Specific [place] Urine Protein Urine Glucose (UA) Urine Ketones Urine Occult Blood Urine Nitrite Urine Bilirubin Urine Urobilinogen Ur Leukocyte Esterase Urine RBC Urine WBC Ur Squamous Epith Cells Urine Bacteria Urine Mucus Ur Microscopic Review Urine Culture Comments 04/26/23 01:28 WBC RBC Hgb Hct MCV MCH MCHC RDW Plt Count MPV Neut # (Auto) Lymph # (Auto) [place] # (Auto) Eos # (Auto) Baso # (Auto) Absolute Nucleated RBC Nucleated RBC % Sodium Potassium Chloride Carbon Dioxide Anion Gap BUN Creatinine Estimated GFR (MDRD) Glucose Calcium Total Bilirubin AST ALT Alkaline Phosphatase Troponin I High Sens Total Protein Albumin Globulin Albumin/Globulin Ratio Lipase Urine Color YELLOW Urine Clarity CLEAR Urine pH 7.5 Ur Specific [place] 1.020 Urine Protein 30 H Urine Glucose (UA) NEGATIVE Urine Ketones NEGATIVE Urine Occult Blood NEGATIVE Urine Nitrite NEGATIVE Urine Bilirubin NEGATIVE Urine Urobilinogen 2 H Ur Leukocyte Esterase NEGATIVE Urine RBC 0-5 Urine WBC 0-3 Ur Squamous Epith Cells RARE Squamous Urine Bacteria Rare Urine Mucus Few Strands Ur Microscopic Review INDICATED Urine Culture Comments NOT INDICATED PD Medical Decision Making - ED course Complexity details: considered differential, d/w patient ED course: HPI s/o gastritis. No concerning findings on blood tests. Minimal leukocytosis (WBC 12.1), unremarkable ER abdominal panel including normal LFTs, normal lipase. He is already taking a daily PPI thus not given in ED. He is given maalox with viscous lidocaine as well as 4mg TL zofran. On reevaluation, patient is resting comfortably and reports adequate relief of symptoms with these medications. He is given 50mg tramadol for residual epigastric pain. Results d/w patient, return precautions reviewed. E-prescriptions for carafate, zofran, viscous lidocaine, and tramadol submitted to patient's pharmacy of choice. H+P, blood tests are not suggestive of more emergent process such as appendicitis (no tenderness in mid/lower abdomen including RLQ), pancreatitis (normal lipase, no heavy/regular alcohol intake per patient). I am prescribing a short course of short-acting opioid pain medication for this patient. 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 I have discussed that the opioids are for short term therapy only, and will not be refilled from the ED. Departure - Departure Disposition: 01 Home, Self Care Clinical Impression: Abdominal pain Qualifiers: Abdominal location: epigastric Qualified Code(s): R10.13 - Epigastric pain Condition: Good Instructions: ED Abdominal Pain Unkn Cause Male Prescriptions: Sucralfate [Carafate] 1 gm PO ACHS #60 tablet traMADol [Ultram] 50 - 100 mg PO Q6H PRN #14 tablet PRN Reason: Pain >8 Lidocaine Viscous 2% [Xylocaine Viscous 2%] 5 - 10 ml PO Q4H PRN #100 ml PRN Reason: Abdominal Pain Ondansetron Odt [Zofran Odt] 4 mg TL Q6H PRN #14 tablet PRN Reason: Nausea / Vomiting Comments: There were no concerning or diagnostic findings on tonight's tests.The cause of your symptoms remains unclear at this time. Your upcoming upper endoscopy might provide an answer, such as gastritis or ulcer. In the meantime, it is reasonable to take a few medications that would treat gastritis/ulcer. You have indicated to me that you are already taking an acid blocking medication such as Prilosec. I am also electronically submitting prescriptions for viscous lidocaine, tramadol, Zofran, and Carafate to the [facility] pharmacy in [place]. The viscous lidocaine is an numbing agent that you can take as per the label instructions for upper abdominal pain. As we discussed, I recommend that if you take this medication, you take it along with a dose of liquid Maalox to help blunt the medicinal taste of the lidocaine. The Zofran is to be taken per the prescription label instructions as needed for nausea. The carafate is a medication that can help coat the stomach, providing an extra barrier between the stomach lining and stomach acid .Lastly, the tramadol is a mild narcotic/opiate pain medication. I am prescribing a short course of narcotic pain medication for you. These are potentially dangerous and addictive medications that should be used carefully. These medications may constipate you. Take an cykh-muc-mxxswty stool softener (docusate) twice daily with plenty of water while taking these medications. If you go 24 hours without a bowel movement, take [id number]-[id number] miralax, per package instructions. Do not drink or drive while taking these medications. If you received narcotic or sedating medications while in the emergency department, do not drive for 24 hours. Store this medication in a safe, secure place and out of reach of children. It is a violation of federal law to give or sell this medication to another per son or to use in a manner other than prescribed. The ED will not refill narcotic prescriptions, including prescriptions lost or stolen. To dispose of unwanted medications: 1. [facility] [address] in [place] has a medication drop box. They accept prescription medications (in pill form) Thursday through Thursday 9:00 a.m. to 5:00 p.m. 2. The [facility] [employer] accepts prescription medications (in pill form only) for disposal year round. Call for more information. 3. Contact the [facility] for the next [facility] sponsored prescription drug collection event. , [phone], or [phone]; Discharge Date/Time: 04/26/23 03:03
[2023-04-26 01:32] LABS: BILIRUBIN,URINE NEGATIVE (NEGATIVE); GLUCOSE, URINE (UA) NEGATIVE (NEGATIVE); KETONES,URINE (UA) NEGATIVE (NEGATIVE); LEUKOCYTE ESTERASE, URINE NEGATIVE (NEGATIVE); NITRITE,URINE NEGATIVE (NEGATIVE); OCCULT BLOOD,URINE NEGATIVE (NEGATIVE); PH,URINE 7.5 PH (5.0-7.5); PROTEIN,URINE 30 mg/dL (NEGATIVE); UROBILINOGEN,URINE 2 E.U./dL (NORMAL)
[2023-04-26 01:38] LABS: BACTERIA,URINE Rare /HPF (None Seen); CLARITY,URINE CLEAR (CLEAR); MUCUS,URINE Few Strands; RBC,URINE 0-5 /HPF (0-5); SQUAMOUS EPITHELIAL CELL,UR RARE Squamous (<= Few); WBC,URINE 0-3 /HPF (0-3)
[2023-04-26] MEDS: LIDOCAINE VISCOUS 2% 15 ML ORAL SYRINGE MM STA (02:26)
[2023-04-26] MEDS: MAG HYDROX/AL HYDROX/SIMETH 30 ML UDC PO STA (02:26)
[2023-04-26] MEDS: ONDANSETRON ODT 4 MG TABLET TL STA (02:27)
[2023-04-26] MEDS: traMADol 50 MG TABLET PO STA (02:27)
== END 2023-04-26 03:03 | disposition home or self-care (01) ==
LOC: ED 00:31
DX: R10.13 Epigastric pain (principal); I10 Essential (primary) hypertension; R73.03 Prediabetes; Z79.899 Other long term (current) drug therapy; Z79.84 Long term (current) use of oral hypoglycemic drugs
CPT/HCPCS: 36415; 80053; 81001; 83690; 84484; 85025; 93005; 99283; 99284; A9270; Q0162; 81003; 87086

== ENCOUNTER 2023-08-18 13:36 | Emergency (ER) | payer OTHER ==
--- NOTE | 2023-08-18 14:07 | ED Physician Documentation ---
History of Present Illness - Stated complaint Stated Complaint: SI - Chief complaint Chief Complaint: MHE - History obtained from History obtained from: Patient, EMS - Additonal information Additional information: The patient is brought to the emergency department by EMS for chief complaint of suicidal ideation. He has a history of depression for about the last for 5 years [place]. He has had recent exacerbating factors of his mother sustaining a catastrophic Hemorrhagic CVA and then about a week ago, his sister dying of a ruptured cerebral aneurysm. He has had to provide care for his mother and this is caused him to have to take leave from his job at the [email or web address]. He states he also has the pressure of trying to work and send money to his family to help with their expenses. The patient states that she has been feeling very depressed lately and that yesterday morning when he got in the car to go to work, he decided to just turn the car on leave the garage door shut. He said he sat in there for several minutes but then began to cough and feel tingly and he became afraid and ended up just deciding to go to work instead. He states he also took 200 mg of his Prozac yesterday morning as well. He states that he felt sedated yesterday and that the day, went by in a blur. This morning, he still felt depressed and suicidal and decided to come here instead of trying to commit suicide again. He states that his family lives far away but he does have support here in the form of colleagues and friends. He states that the things that make him feel like he may not want to commit suicide are having plans for after he gets out of the [place] and also, a sense of duty to his family to help support them financially. He denies alcohol or drugs. No recent dose changes on his medications. PD PAST MEDICAL HISTORY - Past Medical History Past Medical History: Yes Cardiovascular: Hypertension Respiratory: Sleep apnea, CPAP use Neuro: None Endocrine/Autoimmune: Type 2 diabetes, Other GI: GERD : None Psych: Depression, Anxiety Musculoskeletal: None Derm: None - Past Surgical History Past Surgical History: No - Present Medications Home Medications: Ambulatory Orders Medication Instructions Recorded Confirmed Lisinopril [Zestril] 10 mg ORAL DAILY 10/14/22 08/18/23 hydroCHLOROthiazide [Hydrodiuril] 12.5 mg ORAL DAILY 10/14/22 08/18/23 Fluoxetine HCl [Prozac] 80 mg PO DAILY 04/26/23 08/18/23 buPROPion HCL [Bupropion Xl] 150 mg PO DAILY 04/26/23 08/18/23 metFORMIN [Glucophage] 500 mg PO BID 04/26/23 08/18/23 Ibuprofen [Motrin] 1 tablet PO Q8H PRN 08/18/23 08/18/23 methocarbamoL [Methocarbamol] 500 mg PO Q6HR PRN 08/18/23 08/18/23 - Allergies Allergies/Adverse Reactions: Allergies Allergy/AdvReac Type Severity Reaction Status Date / Time No Known Drug Allergies Allergy Verified 08/18/23 13:44 - Social History Does the pt smoke?: No Smoking Status: Never smoker Does the pt drink ETOH?: No Does the pt have substance abuse?: No - Immunizations Immunizations are current?: Yes - POLST Patient has POLST: No PD ED PE NORMAL - Vitals Vital signs reviewed: Yes - General General: Alert and oriented X 3, No acute distress, Well developed/nourished - HEENT HEENT: Atraumatic, PERRL, EOMI, Moist mucous membranes - Neck Neck: Supple, no meningeal sign - Cardiac Cardiac: RRR, No murmur - Respiratory Respiratory: No respiratory distress, Clear bilaterally - Abdomen Abdomen: Soft, Non tender, Non distended - Derm Derm: Normal color, Warm and dry, No rash - Extremities Extremities: No deformity - Neuro Neuro: Alert and oriented X 3, Other (Grossly intact) - Psych Psych: Normal mood, Normal affect Results - Vitals Vitals: Vital Signs - 24 hr 08/18/23 08/18/23 13:44 21:03 Temperature 36.5 C 36.4 C L Heart Rate 77 81 Respiratory 16 17 Rate Blood Pressure 144/98 H 146/95 H O2 Saturation 98 99 Oxygen O2 Source Room air - Labs Labs: Laboratory Tests 08/18/23 08/18/23 08/18/23 14:09 14:09 14:09 WBC 6.2 RBC 5.16 Hgb 15.4 Hct 46.0 MCV 89.1 MCH 29.8 MCHC 33.5 RDW 12.5 Plt Count 250 MPV 10.0 Neut # (Auto) 3.8 Lymph # (Auto) 1.8 [place] # (Auto) 0.5 Eos # (Auto) 0.1 Baso # (Auto) 0.0 Absolute Nucleated RBC 0.00 Nucleated RBC % 0.0 Sodium 136 Potassium 4.1 Chloride 98 L Carbon Dioxide 31 Anion Gap 7.0 BUN 14 Creatinine 1.1 Estimated GFR (MDRD) 80 L Glucose 98 Calcium 10.4 H Total Bilirubin 0.8 AST 63 H ALT 132 H Alkaline Phosphatase 46 Total Protein 8.9 Albumin 5.5 Globulin 3.4 Albumin/Globulin Ratio 1.6 Lipase 23 Urine Opiates Screen Ur Oxycodone Screen Urine Methadone Screen Ur Propoxyphene Screen Acetaminophen < 0.1 Ur Barbiturates Screen Ur Tricyclics Screen Ur Phencyclidine Scrn Ur Amphetamine Screen U Methamphetamines Scrn U Benzodiazepines Scrn Urine Cocaine Screen U Cannabinoids Screen Ethyl Alcohol < 10.0 SARS-CoV-2 (PCR) 08/18/23 08/18/23 14:15 16:12 WBC RBC Hgb Hct MCV MCH MCHC RDW Plt Count MPV Neut # (Auto) Lymph # (Auto) [place] # (Auto) Eos # (Auto) Baso # (Auto) Absolute Nucleated RBC Nucleated RBC % Sodium Potassium Chloride Carbon Dioxide Anion Gap BUN Creatinine Estimated GFR (MDRD) Glucose Calcium Total Bilirubin AST ALT Alkaline Phosphatase Total Protein Albumin Globulin Albumin/Globulin Ratio Lipase Urine Opiates Screen NEGATIVE Ur Oxycodone Screen NEGATIVE Urine Methadone Screen NEGATIVE Ur Propoxyphene Screen NEGATIVE Acetaminophen Ur Barbiturates Screen NEGATIVE Ur Tricyclics Screen NEGATIVE Ur Phencyclidine Scrn NEGATIVE Ur Amphetamine Screen NEGATIVE U Methamphetamines Scrn NEGATIVE U Benzodiazepines Scrn NEGATIVE Urine Cocaine Screen NEGATIVE U Cannabinoids Screen NEGATIVE Ethyl Alcohol SARS-CoV-2 (PCR) NOT DETECTED PD Medical Decision Making - ED course Complexity details: reviewed results, re-evaluated patient, considered differential, d/w patient ED course: The patient was worked up with medical clearance labs and urine drug screen. The patient was medically cleared and evaluated by social work. He was accepted at [facility] by Philippe Ohara and is agreeable to transfer. Departure - Departure Disposition: [facility] Psych Hosp/Unit DC/Xfer Clinical Impression: Attempted suicide Depression Qualifiers: Depression Type: major depressive disorder Major depression recurrence: recurrent Active/Remission status: currently active Major depression episode severity: moderate Qualified Code(s): F33.1 - Major depressive disorder, recurrent, moderate Condition: Stable Forms: PCP List Discharge Date/Time: 08/18/23 22:03
[2023-08-18 14:15] LABS: BASOPHILS % (AUTO) 0.6 %; EOSINOPHILS # (AUTO) 0.1 10^3/uL (0.0-0.7); HGB - HEMOGLOBIN 15.4 g/dL (14.0-18.0); LYMPHOCYTES # (AUTO) 1.8 10^3/uL (1.5-3.5); LYMPHOCYTES % (AUTO) 29.3 %; MEAN CORPUSCULAR HEMOGLOBIN 29.8 pg (27.0-31.0); MEAN CORPUSCULAR HGB CONC 33.5 g/dL (32.0-36.0); MEAN CORPUSCULAR VOLUME 89.1 fL (80.0-94.0); MONOCYTES # (AUTO) 0.5 10^3/uL (0.0-1.0); MONOCYTES % (AUTO) 7.6 %; NEUTROPHILS # (AUTO) 3.8 10^3/uL (1.5-6.6); NEUTROPHILS % (AUTO) 61.3 %; PLT - PLATELET COUNT 250 10^3/uL (130-450); RED BLOOD COUNT 5.16 10^6/uL (4.70-6.10); RED CELL DISTRIBUTION WIDTH 12.5 % (12.0-15.0); WHITE BLOOD COUNT 6.2 x10^3/uL (4.8-10.8)
[2023-08-18 14:24] LABS: MUDS CUTOFF CONCENTRATIONS CUTOFF CONC BELOW:
[2023-08-18 14:30] LABS: ALBUMIN 5.5 g/dL (3.2-5.5); ALBUMIN/GLOBULIN RATIO 1.6 (1.0-2.2); ALKALINE PHOSPHATASE 46 IU/L (42-121); ALT ALANINE AMINOTRANSFERASE 132 IU/L (10-60); AST ASPARTATE AMINOTRANSFERASE 63 IU/L (10-42); BILIRUBIN,TOTAL 0.8 mg/dL (0.2-1.0); BUN - BLOOD UREA NITROGEN 14 mg/dL (6-20); CALCIUM 10.4 mg/dL (8.5-10.3); CARBON DIOXIDE - CO2 31 mmol/L (21-32); CHLORIDE 98 mmol/L (101-111); CREATININE 1.1 mg/dL (0.6-1.3); ETOH - ETHANOL < 10.0 mg/dL; GFR - MDRD 80 (>89); GLUCOSE 98 mg/dL (74-104); LIPASE 23 U/L (11-82); POTASSIUM 4.1 mmol/L (3.5-4.5); SODIUM 136 mmol/L (135-145); TOTAL PROTEIN 8.9 g/dL (6.4-8.9)
[2023-08-18 14:38] LABS: AMPHETAMINE SCREEN,URINE NEGATIVE (NEGATIVE); BARBITURATE SCREEN,UR NEGATIVE (NEGATIVE); BENZODIAZEPINES SCREEN, URINE NEGATIVE (NEGATIVE); COCAINE SCREEN URINE NEGATIVE (NEGATIVE); METHADONE SCREEN, URINE NEGATIVE (NEGATIVE); METHAMPHETAMINES SCREEN, URINE NEGATIVE (NEGATIVE); OPIATE SCREEN, URINE NEGATIVE (NEGATIVE); OXYCODONE SCREEN, URINE NEGATIVE (NEGATIVE); PROPOXYPHENE SCREEN, URINE NEGATIVE (NEGATIVE); THC CANNABINOID SCREEN, URINE NEGATIVE (NEGATIVE); TRICYCLIC ANTIDEPRESSANT,URINE NEGATIVE (NEGATIVE)
[2023-08-18 21:11] VITALS: BP 146/95; O2SAT 99
== END 2023-08-18 22:03 ==
LOC: EDUNIT# → ED 13:36
DX: R45.851 Suicidal ideations (principal); F33.1 Major depressive disorder, recurrent, moderate; Z91.51 Personal history of suicidal behavior; Z20.822 Contact with and (suspected) exposure to COVID-19
CPT/HCPCS: 36415; 80053; 80306; 80307; 80320; 83690; 85025; 86769; 87635; 99283; 99285

== ENCOUNTER 2024-02-15 13:15 | Outpatient (CLI) | payer OTHER ==
[2024-02-15 17:43] LABS: BASOPHILS # (AUTO) 0.1 10^3/uL (0.0-0.1); BASOPHILS % (AUTO) 0.8 %; EOSINOPHILS # (AUTO) 0.2 10^3/uL (0.0-0.7); EOSINOPHILS % (AUTO) 2.5 %; HCT - HEMATOCRIT 44.3 % (42.0-52.0); HGB - HEMOGLOBIN 15.1 g/dL (14.0-18.0); LYMPHOCYTES # (AUTO) 1.8 10^3/uL (1.5-3.5); LYMPHOCYTES % (AUTO) 27.8 %; MEAN CORPUSCULAR HGB CONC 34.1 g/dL (32.0-36.0); MEAN CORPUSCULAR VOLUME 88.1 fL (80.0-94.0); MEAN PLATELET VOLUME 10.9 fL (7.4-11.4); MONOCYTES # (AUTO) 0.6 10^3/uL (0.0-1.0); MONOCYTES % (AUTO) 9.7 %; NEUTROPHILS # (AUTO) 3.8 10^3/uL (1.5-6.6); NEUTROPHILS % (AUTO) 58.9 %; PLT - PLATELET COUNT 230 10^3/uL (130-450); RED BLOOD COUNT 5.03 10^6/uL (4.70-6.10); RED CELL DISTRIBUTION WIDTH 12.7 % (12.0-15.0); WHITE BLOOD COUNT 6.4 x10^3/uL (4.8-10.8)
[2024-02-15 17:59] LABS: BUN - BLOOD UREA NITROGEN 14 mg/dL (6-20); CALCIUM 9.8 mg/dL (8.5-10.3); CARBON DIOXIDE - CO2 27 mmol/L (21-32); CHLORIDE 100 mmol/L (101-111); CREATININE 1.2 mg/dL (0.6-1.3); CRP - C-REACTIVE PROTEIN < 0.5 mg/dL (<0.5); GFR - MDRD 72 (>89); GLUCOSE 215 mg/dL (74-104); SODIUM 135 mmol/L (135-145); URIC ACID 5.9 mg/dL (4.4-7.6)
== END 2024-02-15 13:30 | disposition home or self-care (01) ==
LOC: LAB.N 13:15
PROVIDERS: ATTEND Physician Assistant Medical
DX: M79.89 Other specified soft tissue disorders (principal)
CPT/HCPCS: 36415; 80048; 84550; 85025; 86140